=== PATIENT | female | born 1985 | race Caucasian/White ===

== ENCOUNTER 2017-02-17 01:47 | Emergency (ER) | payer MEDICAID ==
[~2017-02-17 01:47] MED LIST: CENTTAB9 PO; CETI10 PO; CYCL-36 PO; DHA200CA PO; EQL400TA PO; FLON0.053; HYDR-3111 PO; IBUP600 PO; PROM25TA5 PO; PROT40TA PO
--- NOTE | 2017-02-17 02:35 | PD ---
HPI Chief Complaint Possibly leaking fluid, had a gush of fluid at home Date Seen: February 17, 2017 Travel History International Travel<30 Days: No Contact w/Intl Traveler<30Days: No Known Affected Area: No History of Present Illness HPI The patient is 31-year-old white female at 35 weeks presents complaining of a gush of fluid per vagina at home. Denies bleeding. heart rate tracing is reactive and there is a few irregular contractions. Para: 1 : 2 History Past Medical History Narrative Medical Currently has a head cold with cough Obstetric History Obstetric History One vaginal delivery Social History Alcohol Use: No Tobacco Use: No Substance Abuse: No Allergies-Medications (Allergen,Severity, Reaction): Coded Allergies: Penicillin (Verified Allergy, Severe, Hives, 10/17/14) Sulfa (Verified Allergy, Severe, Hives, 10/17/14) Home Meds Active Scripts Ibuprofen (Motrin 600 Mg Tab)600 Mg [id number] Mg PO Q6H #30 TAB Prov:Saleem Yang MD 11/21/14 Reported Medications Multiple Vitamins W/ Minerals (Centrum) Tab1 Tab PO DAILY 11/18/14 Folic Acid (Eql Folic Acid)400 Mcg [id number] Mcg PO DAILY 11/18/14 Docosahexaenoic Acid (Dha Complete)200 Mg [id number] Mg PO 11/18/14 Cetirizine HCl (Zyrtec 10 Mg Tab)10 Mg Tab10 Mg PO DAILY 11/18/14 Hydrocodone/Acetaminophen 5/300 (Vicodin 5/300)5 Mg/300 Mg Tab1 Tab PO Q6H PRN ( PAIN) 11/18/14 Cyclobenzaprine Hcl (Flexeril)10 Mg Tab10 Mg PO HS 11/18/14 Pantoprazole Sodium (Protonix)40 Mg Tab40 Mg PO DAILY 11/18/14 Promethazine Hcl (Phenergan)25 Mg Tab12.5 Mg PO Q4H PRN (NAUSEA) 11/18/14 Fluticasone Propionate (Flonase)0.05 % Naspr2 Spr NA DAILY 2 SPRAYS EACH NOSTRIL 11/18/14 Review of Systems General / Constitutional: No: Fever, Weight Gain, Chills, Other Eyes: No: Diploplia, Blurred Vision, Visual changes, Pain, Photophobia HENT: No: Headaches, Vertigo, Lightheadedness Cardiovascular: No: Irregular Rhythm, Chest Pain or Discomfort, Palpitations, Tachycardia, Syncope, Varicosities, Edema, Cyanosis Respiratory: Cough, No: Short of Breath, Other Gastrointestinal: No: Nausea, Vomiting, Diarrhea Genitourinary: No: Decreased Urinary Output, Oliguria Musculoskeletal: No: Limited ROM, Weakness, Cramping, Edema, Pain Skin: No Rash, No Itching, No Dryness, No Lumps, No Change in Pigmentation, No Change in Nails, No Alopecia, No Lesions Neurologic: No: Weakness, Dizziness, Syncope, Focal Abnormalities, Coordination Problem, Headache, Slurred Speech, Seizures Psychiatric: No: Depression, Suicidal Ideations, Homicidal Ideation Endocrine: No: Heat Intolerance, Cold Intolerance, Polydipsia, Polyuria, Other Physical Exam Narrative GENERAL: Well-nourished, well-developed patient. SKIN: Warm and dry. HEAD: Normocephalic and atraumatic. EYES: No scleral icterus. No injection or drainage. ENT: No nasal drainage noted. Mucous membranes pink. Airway patent. NECK: Supple, trachea midline. No JVD. CARDIOVASCULAR: Regular rate and rhythm without murmurs, gallops, or rubs. RESPIRATORY: Breath sounds equal bilaterally. No accessory muscle use. BREASTS: Bilateral exam showed no masses , no retractions, no nipple discharge. ABDOMEN/GI: Abdomen soft, non-tender, bowel sounds present, no rebound, no guarding Gravid to [35-] weeks size Fundal Height: [35-] GENITOURINARY: External Genitalia: intact and normal in appearance BUS glands: [-] Cervix: [-] Closed Dilatation: [-Closed] Effacement: [-] Thick Station: [-3] Presentation: [vtx-] Membranes: [intact ] amnio sure negative 2 Uterine Contractions: [Irregular-] FHT's: Category: [1-] Baseline: [144-] Reactive: [yes-] Variability: [mod-] Decels: [none-] EXTREMITIES: No cyanosis or edema. BACK: Nontender without obvious deformity. No CVA tenderness. NEUROLOGICAL: Awake and alert. Motor and sensory grossly within normal limits. Five out of 5 muscle strength in all muscle groups. Normal speech. Data Data Labs Amnio sure negative 2 MDM Interpretation(s) This patient is 31-year-old white female at [address] Yang for care presents combining of a gush of fluid at home. Amnio sure is negative 2 here she is not leaking now. There is no bleeding. The contractions are minimal. Cervix is closed and thick. Plan Plan to discharge home and have her follow up with her OB provider in the usual fashion Diagnosis Diagnosis: Primary Impression: No leakage of amniotic fluid into vagina Disposition: 01 DISCHARGE HOME Condition: Stable Patient Instructions: General Instructions, Early Labor Signs (ED), Movement (ED) Departure Forms: Tests/Procedures Vu Collazo II, MD February 17, 2017 02:35
== END 2017-02-17 02:43 | disposition home or self-care (01) ==
LOC: HOBED 01:47
DX: Z03.71 Encounter for suspected problem with amniotic cavity and membrane ruled out (principal); Z3A.35 35 weeks gestation of pregnancy
CPT/HCPCS: 84112; 99283

== ENCOUNTER 2017-03-17 08:02 | Inpatient (IN) | payer MEDICAID ==
[2017-03-17] VITALS (78 sets, daily range): BP systolic 105–138; BP diastolic 62–94; PULSE 84–138; RESP 18–20; TEMP 97.4–98.3; O2SAT 99–100
[2017-03-17] MEDS ORDERED: LACTATED RINGER'S 1000 ML INJ 1,000 ML IV PRN (09:08)
[2017-03-17] MEDS ORDERED: MINERAL OIL 10 ML VIAL TOPICAL PRN (09:15)
[2017-03-17] MEDS ORDERED: ONDANSETRON HCL 4 MG/2 ML VIAL IV PRN (09:15)
[2017-03-17] MEDS ORDERED: OXYTOCIN 30 UNITS-500ML PREMIX 500 ML IV SCH (09:15)
[2017-03-17] MEDS ORDERED: SODIUM CHLORID 0.9% 500 ML INJ 500 ML IV PRN (09:15)
[2017-03-17] MEDS ORDERED: LIDOCAINE HCL 1% 50 ML VIAL I-DERMAL PRN (09:15)
[2017-03-17] MEDS ORDERED: LIDOCAINE HCL 1% 50 ML VIAL INFIL PRN (09:15)
[2017-03-17] MEDS ORDERED: OXYTOCIN 30 UNITS-500ML PREMIX 500 ML IV ONE ×2 (09:15→17:30)
[2017-03-17] MEDS ORDERED: CITRIC ACID-SODIUM CITRATE LIQ 30 ML UDC PO SCH (09:15)
--- NOTE | 2017-03-17 09:16 | HHI.HP ---
HPI Chief Complaint Induction of labor. Date Seen: March 17, 2017 Travel History International Travel<30 Days: No Contact w/Intl Traveler<30Days: No History of Present Illness HPI Patient is a 31 year old at 39-1/7 weeks gestation who presents today for induction of labor. She denies any vaginal bleeding or discharge. No gush or leaking of fluids. Positive movement. History Past Medical History Medical History: Denies Significant Hx Obstetric History Obstetric History Term in 2014 Past Surgical History Narrative Surgical Tonsillectomy 2014 Family History Family History: Negative Social History Alcohol Use: No Tobacco Use: No Substance Abuse: No Allergies-Medications (Allergen,Severity, Reaction): Coded Allergies: Penicillin (Verified Allergy, Severe, Hives, 10/17/14) Sulfa (Verified Allergy, Severe, Hives, 10/17/14) Home Meds Active Scripts Ibuprofen (Motrin 600 Mg Tab)600 Mg [id number] Mg PO Q6H #30 TAB Prov:Saleem Yang MD 11/21/14 Reported Medications Multiple Vitamins W/ Minerals (Centrum) Tab1 Tab PO DAILY 11/18/14 Folic Acid (Eql Folic Acid)400 Mcg [id number] Mcg PO DAILY 11/18/14 Docosahexaenoic Acid (Dha Complete)200 Mg [id number] Mg PO 11/18/14 Cetirizine HCl (Zyrtec 10 Mg Tab)10 Mg Tab10 Mg PO DAILY 11/18/14 Hydrocodone/Acetaminophen 5/300 (Vicodin 5/300)5 Mg/300 Mg Tab1 Tab PO Q6H PRN ( PAIN) 11/18/14 Cyclobenzaprine Hcl (Flexeril)10 Mg Tab10 Mg PO HS 11/18/14 Pantoprazole Sodium (Protonix)40 Mg Tab40 Mg PO DAILY 11/18/14 Promethazine Hcl (Phenergan)25 Mg Tab12.5 Mg PO Q4H PRN (NAUSEA) 11/18/14 Fluticasone Propionate (Flonase)0.05 % Naspr2 Spr NA DAILY 2 SPRAYS EACH NOSTRIL 11/18/14 Review of Systems Except as stated in HPI: all other systems reviewed are Neg General / Constitutional: No: Fever, Chills Eyes: No: Blurred Vision, Visual changes HENT: No: Headaches Cardiovascular: No: Chest Pain or Discomfort Respiratory: No: Short of Breath Gastrointestinal: No: Abdominal Pain Genitourinary: No: Pelvic Pain, Discharge, Vaginal Bleeding Musculoskeletal: No: Edema Neurologic: No: Headache Psychiatric: No: Substance Abuse Physical Exam Narrative GENERAL: Well-nourished, well-developed patient. SKIN: Warm and dry. HEAD: Normocephalic and atraumatic. EYES: No scleral icterus. No injection or drainage. ENT: No nasal drainage noted. Mucous membranes pink. Airway patent. NECK: Supple, trachea midline. No JVD. CARDIOVASCULAR: Regular rate and rhythm without murmurs, gallops, or rubs. RESPIRATORY: Breath sounds equal bilaterally. No accessory muscle use. ABDOMEN/GI: Abdomen soft, non-tender, bowel sounds present, no rebound, no guarding Gravid to 39 weeks size GENITOURINARY: External Genitalia: intact and normal in appearance BUS glands: normal Cervix: midposition Dilatation: 3-4 Effacement: 50 Station: -1 Presentation: vertex Membranes: AROM with clear fluid Uterine Contractions: none FHT's: Category: I Baseline: 140 Reactive: + Variability: moderate Decels: none EXTREMITIES: No cyanosis or edema. BACK: Nontender without obvious deformity. No CVA tenderness. NEUROLOGICAL: Awake and alert. Motor and sensory grossly within normal limits. Normal speech. Data Data Vital Signs Reviewed: Yes Orders Admit To Inpatient (03/17/17 ) Code Status (03/17/17 09:08) Vital Signs (Adult) .Per protocol (03/17/17 09:08) Activity Oob Ad Deonna (03/17/17 09:08) Heart (03/17/17 09:08) Amnioinfusion (03/17/17 09:08) Urinary Catheter Management .ONCE (03/17/17 09:08) Diet Npo (03/17/17 Breakfast) Lactated Ringer's 1000 Ml Inj (Lr 1000 M (03/17/17 09:08) Lactated Ringer's 1000 Ml Inj (Lr 1000 M (03/17/17 09:08) Sodium Chlorid 0.9% 500 Ml Inj (Ns 500 M (03/17/17 09:15) Sodium Chlor 0.9% 1000 Ml Inj (Ns 1000 M (03/17/17 09:28) Lidocaine 1% Inj (50 Ml) (Xylocaine 1% I (03/17/17 09:15) Citric Acid-Sodium Citrate Liq (Bicitra (03/17/17 09:15) Ondansetron Inj (Zofran Inj) (03/17/17 09:15) Fentanyl Inj (Fentanyl Inj) (03/17/17 09:15) Fentanyl Inj (Fentanyl Inj) (03/17/17 09:15) Complete Blood Count With Diff (03/17/17 09:08) Hold Clot (03/17/17 09:08) Abo/Rh Blood Type (03/17/17 09:08) Urinalysis - C+S If Indicated (03/17/17 09:08) Resp Oxygen Non Rebreathe Mask (03/17/17 ) ^ Epidural / Intrathecal Infus (03/17/17 09:08) Oxytocin 30 Units-500ml Premix (Pitocin (03/17/17 09:15) Lidocaine 1% Inj (50 Ml) (Xylocaine 1% I (03/17/17 09:15) Light Mineral Oil (Muri-Lube Oil) (03/17/17 09:15) Inpatient Certification (03/17/17 ) Specimen To Be Collected PRN (03/17/17 09:08) ^ Non Stress Test (03/17/17 09:09) Response To Medication .Post New Med Administration, Reaction (03/17/17 09:09) ^ Discontinue Medication (03/17/17 09:09) Oxytocin Drip (2-2-30) (03/17/17 09:15) Assessment/Plan Assessment and Plan 31 year old at 39-1/7 weeks gestation. 1. IUP- Category I tracing, reassuring. 2. IOL- AROM with clear fluid, augment labor with pitocin 2-2-30. 3. GBS negative. 4. Anticipate vaginal delivery. sdw Humera Ewing MD R2 March 17, 2017 09:16
[2017-03-17 09:26] LABS: AUTOMATED NEUTROPHIL # 9.4 TH/MM3 (1.8-7.7); BASOPHIL % 0.3 % (0.0-2.0); EOSINOPHIL # 0.2 TH/MM3 (0-0.4); EOSINOPHIL % 1.7 % (0.0-4.0); HEMATOCRIT 38.6 % (35.0-46.0); LYMPHOCYTE # 2.3 TH/MM3 (1.0-4.8); MEAN CELL VOLUME 81.4 FL (80.0-100.0); MEAN CORPUSCULAR HEMOGLOBIN 27.6 PG (27.0-34.0); MEAN CORPUSCULAR HGB CONC 33.9 % (32.0-36.0); PLATELET COUNT 136 TH/MM3 (150-450); RED BLOOD COUNT 4.74 MIL/MM3 (4.00-5.30); RED CELL DISTRIBUTION WIDTH 15.3 % (11.6-17.2); WHITE BLOOD COUNT 12.6 TH/MM3 (4.0-11.0)
[2017-03-17 09:27] LABS: HEMO FLAGS AUTO DIFF
[2017-03-17] MEDS ORDERED: SODIUM CHLOR 0.9% 1000 ML INJ 1,000 ML IV PRN (09:28)
[2017-03-17] MEDS ORDERED: LACTATED RINGER'S 1000 ML INJ 1,000 ML IV SCH (09:30)
[2017-03-17 09:31] LABS: BACTERIA, URINE OCC /hpf; BLOOD, URINE MOD (NEG); COMMENT (UR) CULTURE INDICATED; CULTURE IF INDICATED CULTURE INDICATED; GLUCOSE,URINE NEG (NEG); KETONE, URINE NEG (NEG); NITRITE,URINE NEG (NEG); SQUAMOUS EPITHELIAL CELL URINE 4 /hpf (0-5); URINE COLOR YELLOW (YELLW/STRAW)
[2017-03-17 10:12] LABS: PLATELET ESTIMATE SMEAR LOW (NORMAL); PLATELET MORPHOLOGY ENLARGED (NORMAL); SCAN/DIFF AUTO DIFF CONFIRMED
[2017-03-17] MEDS ORDERED: fentaNYL 2MCG-BUPIV 0.125% INJ 100 ML ONE (11:54)
[2017-03-17] MEDS ORDERED: ePHEDrine/NS 25 MG/5 ML SYR ONE (12:29)
[2017-03-17] MEDS ORDERED: fentaNYL 2MCG-BUPIV 0.125% 100 ML EPIDURAL SCH (13:45)
[2017-03-17] MEDS ORDERED: DO NOT ADMINISTER ANTICOAGULANTS PRN (13:45)
[2017-03-17] MEDS ORDERED: ePHEDrine/NS 25 MG/5 ML SYR IV PRN (13:45)
[2017-03-17] MEDS ORDERED: NO SYSTEM NARCOTICS PRN (13:45)
--- NOTE | 2017-03-17 15:43 | PD.OB.DELI ---
Delivery Date: March 17, 2017 Anesthesia: Epidural Episiotomy: None Vaginal Delivery: Normal Presentation: Occiput anterior Nuchal Cord: None Delayed cord clamping (45 sec): Yes : Male One Minute : 8 Five Minute : 9 Weight: 3880g Placenta: Spontaneous delivery, Intact, 3 vessel cord Laceration: Perineal laceration, 1 deg Repair: Chromic running (3.0 chromic running) Additional Information EBL 250cc. Baby Love. Supervised by Dr. Yang. Humera Solo MD R2 March 17, 2017 15:43
[2017-03-17] MEDS ORDERED: ONDANSETRON ODT 4 MG TAB PO PRN (15:45)
[2017-03-17] MEDS ORDERED: SODIUM CHLORIDE 0.9% FLUSH 10 ML FLUSH IV FLUSH PRN (15:45)
[2017-03-17] MEDS ORDERED: oxyCODONE/ACETAMINOPHEN 5 MG/325 MG TAB PO PRN (15:45)
[2017-03-17] MEDS ORDERED: ACETAMINOPHEN 325 MG TAB PO PRN (15:45)
[2017-03-17] MEDS ORDERED: ZOLPIDEM TARTRATE 5 MG TAB PO PRN (15:45)
[2017-03-17] MEDS ORDERED: WITCH HAZEL 50%/GLYCERIN 12.5% 40 PAD JAR TOPICAL PRN (15:45)
[2017-03-17] MEDS ORDERED: DOCUSATE SODIUM 50 MG/SENNA 8.6 MG TAB PO PRN (15:45)
[2017-03-17] MEDS ORDERED: ALUMINUM/MAGNESIUM/SIMETH 30 ML CUP PO PRN (15:45)
[2017-03-17] MEDS ORDERED: BENZOCAINE 20% TOPICAL SPRAY 60 ML CAN TOPICAL PRN (15:45)
[2017-03-17] MEDS ORDERED: MEASLES, MUMPS, RUBELLA VACCINE 0.5 ML VIAL SQ ONE (16:00)
[2017-03-17] MEDS ORDERED: DIPHTH/TETANUS/ACEL PERTUSSIS (BOOSTER) 0.5 ML VIAL/PFS IM ONE (16:00)
[2017-03-17] MEDS ORDERED: OXYTOCIN 30 UNITS-500ML PREMIX 500 ML ONE (16:42)
[2017-03-17] MEDS ORDERED: MISOPROSTOL 200 MCG TAB RECTAL ONE (17:30)
[2017-03-17] MEDS: IBUPROFEN 600 MG TAB PO PRN (20:00)
[2017-03-17] MEDS ORDERED: SODIUM CHLORIDE 0.9% FLUSH 10 ML FLUSH IV FLUSH SCH (21:00)
[2017-03-17] MEDS: oxyCODONE/ACETAMINOPHEN 5 MG/325 MG TAB PO PRN (23:35)
[2017-03-18] MEDS: oxyCODONE/ACETAMINOPHEN 5 MG/325 MG TAB PO PRN ×4 (04:16→23:30)
[2017-03-18] MEDS: IBUPROFEN 600 MG TAB PO PRN ×4 (04:16→23:30)
[2017-03-18 08:01] VITALS: BP 112/79; PULSE 91; RESP 18; TEMP 98
[2017-03-18] MEDS ORDERED: IBUP-232 PO (08:19)
[2017-03-18] MEDS ORDERED: OXYC1TAB63 PO (08:19)
--- NOTE | 2017-03-18 08:51 | HHI.OB ---
Subjective Post Day: 1 Objective Vitals/I&O Vital Signs Date Time Temp Pulse Resp B/P Pulse Ox O2 Delivery O2 Flow Rate FiO2 03/18/17 08:01 98.0 91 18 112/79 03/17/17 18:31 98.3 86 20 118/86 03/17/17 17:51 18 03/17/17 17:45 91 128/84 03/17/17 17:31 92 126/81 03/17/17 17:30 18 03/17/17 17:15 93 121/79 03/17/17 17:15 18 03/17/17 17:00 89 119/71 03/17/17 16:49 18 03/17/17 16:45 98 118/78 03/17/17 16:30 86 127/78 03/17/17 16:16 90 122/84 03/17/17 16:00 84 132/77 03/17/17 15:58 18 03/17/17 15:56 98.2 03/17/17 15:46 103 119/66 03/17/17 15:35 18 03/17/17 15:33 138 110/62 03/17/17 15:00 93 119/77 03/17/17 14:33 18 03/17/17 14:30 91 117/73 03/17/17 14:20 94 100 03/17/17 14:15 95 100 03/17/17 14:05 99 03/17/17 14:00 95 116/79 03/17/17 14:00 97.4 18 03/17/17 14:00 98 03/17/17 13:55 99 03/17/17 13:55 100 03/17/17 13:50 100 03/17/17 13:50 97 03/17/17 13:45 100 03/17/17 13:45 93 03/17/17 13:45 91 108/77 03/17/17 13:40 96 03/17/17 13:35 104 03/17/17 13:30 91 03/17/17 13:30 99 119/67 03/17/17 13:25 99 99 03/17/17 13:20 99 03/17/17 13:20 96 03/17/17 13:15 106 116/76 03/17/17 13:15 89 03/17/17 13:15 100 03/17/17 13:10 103 03/17/17 13:08 95 118/72 03/17/17 13:05 102 03/17/17 13:00 104 105/72 03/17/17 13:00 97 03/17/17 12:55 103 100 03/17/17 12:50 110 100 03/17/17 12:46 18 03/17/17 12:45 105 116/74 03/17/17 12:45 93 03/17/17 12:45 100 03/17/17 12:40 106 117/71 03/17/17 12:40 99 03/17/17 12:35 103 115/74 03/17/17 12:35 95 03/17/17 12:30 109 119/69 03/17/17 12:30 118 03/17/17 12:25 103 111/70 03/17/17 12:25 100 03/17/17 12:25 106 03/17/17 12:20 114 03/17/17 12:20 100 03/17/17 12:20 107 112/68 03/17/17 12:19 18 03/17/17 12:15 96 116/68 03/17/17 12:15 100 03/17/17 12:15 100 03/17/17 12:13 94 115/74 03/17/17 12:11 93 138/94 03/17/17 12:10 92 03/17/17 12:07 98 136/82 03/17/17 12:05 99 03/17/17 12:03 99 121/86 03/17/17 11:35 101 03/17/17 11:30 98 03/17/17 11:20 105 03/17/17 11:18 93 128/82 03/17/17 11:15 103 03/17/17 11:10 100 03/17/17 11:05 92 03/17/17 11:04 18 03/17/17 11:00 103 03/17/17 10:50 93 03/17/17 10:45 100 03/17/17 10:40 93 03/17/17 10:35 103 03/17/17 10:33 95 124/88 03/17/17 10:32 18 03/17/17 10:30 101 03/17/17 10:20 99 03/17/17 10:05 93 03/17/17 10:00 97 03/17/17 09:59 97.6 03/17/17 09:59 97 18 121/94 03/17/17 09:55 93 03/17/17 09:50 101 03/17/17 09:34 18 03/17/17 09:31 106 123/90 Objective Remarks GENERAL: Well-nourished, well-developed patient. CARDIOVASCULAR: Regular rate and rhythm without murmurs, gallops, or rubs. RESPIRATORY: Breath sounds equal bilaterally. No accessory muscle use. ABDOMEN/GI: Abdomen soft, non-tender. Fundus: Firm, non-tender at umbilicus. GENITOURINARY: Light to moderate bleeding. EXTREMITIES: No cyanosis, slight edema, non-tender, without signs of DVT. Medications and IVs Current Medications Medications (Trade) Dose Ordered Sig/Nahum Route Start Time Stop Time Status Last Admin (NS Flush) 2 ml BID IV FLUSH 03/17/17 21:00 (NS Flush) 2 ml UNSCH PRN IV FLUSH 03/17/17 15:45 (Tylenol) 650 mg Q4H PRN PO 03/17/17 15:45 (Motrin) 600 mg Q6H PRN PO 03/17/17 15:45 03/18/17 04:16 (Percocet 5-325 Mg) 1 tab Q4H PRN PO 03/17/17 15:45 03/18/17 04:16 (Percocet 5-325 Mg) 2 tab Q4H PRN PO 03/17/17 15:45 (Americaine 20% Top Spr) 1 spray Q4H PRN TOPICAL 03/17/17 15:45 (Tucks Pads) 1 applic QID PRN TOPICAL 03/17/17 15:45 (Bettie-Colace) 2 tab Q12H PRN PO 03/17/17 15:45 03/17/17 20:00 (Ambien) 5 mg HS PRN PO 03/17/17 15:45 (Mag-Al Plus Susp Liq) 15 ml Q8H PRN PO 03/17/17 15:45 (Zofran Odt) 4 mg Q6H PRN PO 03/17/17 15:45 Assessment/Plan Problem List: (1) Normal vaginal delivery Plan: routine Assessment and Plan pt doing well pain well managed with oral pain medication infant in NICU because of hypoglycemia pt routine Discharge Planning dc home tomorrow Joaquina Lanza Mar 18, 2017 08:51
--- NOTE | 2017-03-18 08:52 | HHI.DCPOC ---
Discharge Care Plan Diagnosis: (1) Normal vaginal delivery Your Health Problems Are: Vaginal delivery Report Symptoms to Your Doctor -Temperature above 100.5 degrees -Redness, of incision or excessive or foul smelling drainage -Unusual pain or calf pain -Increased vaginal bleeding -Painful or difficulty urinating -Feelings of extreme sadness or anxiety after 2 weeks Goals to Promote Your Health * To prevent worsening of your condition and complications * To maintain your health at the optimal level Directions to Meet Your Goals Take your medications as prescribed Follow your dietary instruction Follow activity as directed Ensure plenty of rest for recovery Drink fluids for hydration Keep your appointments as scheduled Take your immunizations and boosters as scheduled If your symptoms worsen call your PCP, if no PCP go to Urgent Care Center or Emergency Room Smoking is Dangerous to Your Health. Avoid second hand smoke Call the 24-hour crisis hotline for domestic abuse at Joaquina Lanza Mar 18, 2017 08:52
--- NOTE | 2017-03-18 08:55 | HHI.DS ---
Admission Date March 17, 2017 at 08:02 Discharge Date: Mar 19, 2017 Admitting Diagnosis term induction of labor, AROM with pitocin Diagnosis: (1) Normal vaginal delivery Diagnosis: Principal Delivery Date: March 17, 2017 Vaginal Delivery: Normal Infant: Male Brief History term induction of labor, AROM with pitocin to NICU for hypoglycemia. Hospital Course routine Pt Condition on Discharge: Good Discharge Disposition: Discharge Home Discharge Instructions Diet Instructions: As Tolerated, No Restrictions Additional Diet Instructions: Drink at least 8 - 16 oz bottles of water a day Activities You Can Perform: Shower Only-No Bath, Sitz Bath Activities to Avoid: Lifting/Bending, Sexual Activity Additional Activity Instruc.: No driving until off pain medications Do not lift anything heavier than your baby in an infant carrier Follow up Referrals: [employer] [facility] - 2 Weeks @ [facility] [place] New Medications: Ibuprofen (Ibuprofen) 600 Mg Tab 600 MG PO Q6H Pain Management #30 Ref 1 TAB Oxycodone-Acetaminophen (Oxycodone-Acetaminophen) 5-325 mg Tab 1 TAB PO Q4H moderate pain #15 TAB Joaquina Lanza Mar 18, 2017 08:55
[2017-03-19 07:57] VITALS: BP 131/94; PULSE 98; RESP 18; TEMP 98.2
[2017-03-19] MEDS: IBUPROFEN 600 MG TAB PO PRN (07:57)
[2017-03-19] MEDS: oxyCODONE/ACETAMINOPHEN 5 MG/325 MG TAB PO PRN (07:57)
--- NOTE | 2017-03-19 11:45 | HHI.OB ---
Subjective Post Day: 2 Objective Vitals/I&O Vital Signs Date Time Temp Pulse Resp B/P Pulse Ox O2 Delivery O2 Flow Rate FiO2 03/19/17 07:57 98.2 98 18 131/94 Objective Remarks GENERAL: Well-nourished, well-developed patient. CARDIOVASCULAR: Regular rate and rhythm without murmurs, gallops, or rubs. RESPIRATORY: Breath sounds equal bilaterally. No accessory muscle use. ABDOMEN/GI: Abdomen soft, non-tender. Fundus: Firm, non-tender at umbilicus. GENITOURINARY: Light to moderate bleeding. EXTREMITIES: No cyanosis, slight edema, non-tender, without signs of DVT. Medications and IVs Current Medications Medications (Trade) Dose Ordered Sig/Nahum Route Start Time Stop Time Status Last Admin (NS Flush) 2 ml BID IV FLUSH 03/17/17 21:00 (NS Flush) 2 ml UNSCH PRN IV FLUSH 03/17/17 15:45 (Tylenol) 650 mg Q4H PRN PO 03/17/17 15:45 (Motrin) 600 mg Q6H PRN PO 03/17/17 15:45 03/19/17 07:57 (Percocet 5-325 Mg) 1 tab Q4H PRN PO 03/17/17 15:45 03/19/17 07:57 (Percocet 5-325 Mg) 2 tab Q4H PRN PO 03/17/17 15:45 (Americaine 20% Top Spr) 1 spray Q4H PRN TOPICAL 03/17/17 15:45 (Tucks Pads) 1 applic QID PRN TOPICAL 03/17/17 15:45 (Bettie-Colace) 2 tab Q12H PRN PO 03/17/17 15:45 03/17/17 20:00 (Ambien) 5 mg HS PRN PO 03/17/17 15:45 (Mag-Al Plus Susp Liq) 15 ml Q8H PRN PO 03/17/17 15:45 (Zofran Odt) 4 mg Q6H PRN PO 03/17/17 15:45 03/18/17 11:09 Assessment/Plan Problem List: (1) Normal vaginal delivery Plan: routine Assessment and Plan pt doing well pain well managed with oral pain medication infant in NICU should be dc in 1-2 days mom to stay close pt routine Discharge Planning dc home today Joaquina Lanza Mar 19, 2017 11:45
== END 2017-03-19 11:54 | disposition home or self-care (01) | DRG 775 ==
LOC: H2EA 08:02 → H1EA 18:09
PROVIDERS: ADMIT Obstetrics & Gynecology; ATTEND Obstetrics & Gynecology
PROC: 10E0XZZ Delivery of Products of Conception, External Approach (ICD-10-PCS; principal; 2017-03-17)
PROC: 0HQ9XZZ Repair Perineum Skin, External Approach (ICD-10-PCS; 2017-03-17)
PROC: 10907ZC Drainage of Amniotic Fluid, Therapeutic from Products of Conception, Via Natural or Artificial Opening (ICD-10-PCS; 2017-03-17)
PROC: 3E0S3CZ (ICD-10-PCS; 2017-03-17)
PROC: 00HU33Z Insertion of Infusion Device into Spinal Canal, Percutaneous Approach (ICD-10-PCS; 2017-03-17)
DX: O75.89 Other specified complications of labor and delivery (principal); O70.0 First degree perineal laceration during delivery; Z37.0 Single live birth; Z3A.39 39 weeks gestation of pregnancy
CPT/HCPCS: 59025; 81001; 85025; 86900; 86901; 87086; J2590; J7120